=== PATIENT | female | born 1990 | race African-American/Black ===

== ENCOUNTER 2021-09-30 01:27 | Observation (INO) ==
[2021-09-30] MEDS ORDERED: ONDANSETRON 4 MG/2 ML VIAL IV PRN (01:58)
[2021-09-30] MEDS: MEPERIDINE 50 MG/1 ML VIAL IV PRN ×2 (02:36→05:34)
[2021-09-30] MEDS: LACTATED RINGERS 1,000 ML IV SCH ×2 (02:41→03:13)
[2021-09-30 02:45] LABS: Basophils % 0.6 % (0.0-0.8); Eosinophils % 0.2 % (0.00-10.9); Hematocrit 33.1 VOL% (35.7-47.0); Hemoglobin 9.8 GM/DL (12.0-16.0); Immature Granulocytes % 5.5 %; Immature Granulocytes Absolute 0.29 #; Lymphocytes # 1.5 10*3/uL (1.4-4.0); Lymphocytes % 29.1 % (21.3-54.2); Mean Corpuscular HGB Conc 29.6 GM/DL (32-36); Mean Corpuscular Volume 87.1 FL (87-102); Mean Platelet Volume 11.7 FL (9.6-12.0); Monocytes % 1.3 % (1.7-12.7); NRBC # 0.03 10*3/uL; Neutrophils % 63.3 % (38.7-73.9); Platelet Count 120 T/CUMM (130-400); White Blood Count 5.3 T/CUMM (4-12)
[2021-09-30 03:05] LABS: Alanine Aminotransferase 15 U/L (13-56); Albumin 2.6 G/DL (3.4-5.0); Alkaline Phosphatase 86 U/L (45-117); Aspartate Amino Transferase 29 U/L (0-37); Bilirubin,Total < 0.39 MG/DL (0.20-1.00); Blood Urea Nitrogen 7 MG/DL (7-18); Calcium 8.9 MG/DL (8.5-10.1); Carbon Dioxide 23 MMOL/L (21-32); Estimated Glom Filtration Rate 211 ML/MIN; Glucose 112 MG/DL (74-106); Osmolality,Calculated 271.8 MOS/KG (273-304); Potassium 3.9 MMOL/L (3.5-5.1); Sodium 137 MMOL/L (136-145); Total Protein 6.4 G/DL (6.4-8.2)
[2021-09-30 03:10] LABS: Anisocytosis 1+; Band Neutrophils 32 % (0-10); Lymphocytes 29 % (20-55); Metamyelocytes 2 %; Nucleated Red Blood Cells 1 (0-5); Platelet Estimate Adequate; Segmented Neutrophils 35 % (50-85); Total Cells Counted 100
[2021-09-30 03:11] LABS: Ovalocytes Few
[2021-09-30 03:28] LABS: Rubella Antibody IgG Result Reactive (NonReactive)
[2021-09-30] MEDS ORDERED: OXYTOCIN/LR 20 UNIT/1,000 ML BAG IV ONE ×2 (03:30→03:31)
[2021-09-30] MEDS: ACETAMINOPHEN 500 MG TABLET PO PRN ×2 (05:20→19:39)
[2021-09-30 07:04] LABS: Hepatitis B Surface Ag Quant < 0.10 Index; Hepatitis B Surface Ag Result Non-Reactive (NonReactive)
[2021-09-30 07:26] LABS: HIV Antigen/Antibody Result Nonreactive (Nonreactive)
[2021-09-30 10:00] LABS: Barbiturates Screen,Urine Negative (Negative); Benzodiazepines Screen,Urine Negative (Negative); Cannabinoid Screen,Urine Negative (Negative); Opiate Screen,Urine Negative (Negative); Phencyclidine Screen,Urine Negative (Negative)
[2021-09-30] MEDS ORDERED: IBUPROFEN 800 MG TABLET PO PRN (10:00)
[2021-09-30] MEDS ORDERED: DOCUSATE SODIUM 100 MG CAPSULE PO PRN (10:05)
[2021-09-30 12:43] LABS: Hematocrit 27.5 VOL% (35.7-47.0); Hemoglobin 8.6 GM/DL (12.0-16.0)
[2021-09-30] MEDS: DOCUSATE SODIUM 100 MG CAPSULE PO PRN (19:40)
[2021-09-30] MEDS: FERROUS SULFATE 325 MG TABLET PO SCH ×2 (19:40→21:14)
[2021-10-01 05:51] LABS: Basophils % 0.2 % (0.0-0.8); Eosinophils # 0.1 10*3/uL (0.0-0.87); Eosinophils % 0.3 % (0.00-10.9); Hematocrit 24.7 VOL% (35.7-47.0); Hemoglobin 7.7 GM/DL (12.0-16.0); Immature Granulocytes % 1.7 %; Immature Granulocytes Absolute 0.31 #; Lymphocytes # 1.1 10*3/uL (1.4-4.0); Lymphocytes % 5.7 % (21.3-54.2); Mean Corpuscular HGB Conc 31.2 GM/DL (32-36); Mean Corpuscular Volume 83.7 FL (87-102); Mean Platelet Volume 12.5 FL (9.6-12.0); Monocytes % 5.9 % (1.7-12.7); Neutrophils % 86.2 % (38.7-73.9); Platelet Count 160 T/CUMM (130-400); Red Blood Count 2.95 MC/CUMM (3.8-5.5); Red Cell Distribution Width 18.2 % (9.3-17.3); White Blood Count 18.3 T/CUMM (4-12)
[2021-10-01 06:18] LABS: Band Neutrophils 3 % (0-10); Eosinophils 1 % (0-10); Hypochromia 1+; Lymphocytes 11 % (20-55); Microcytosis 1+; Platelet Estimate Adequate; Segmented Neutrophils 84 % (50-85); Total Cells Counted 100
[2021-10-01] MEDS: FERROUS SULFATE 325 MG TABLET PO SCH ×2 (08:40→19:25)
[2021-10-01] MEDS ORDERED: SODIUM CHLORIDE 0.9% 1,000 ML IV PRN (09:31)
[2021-10-01] MEDS: ACETAMINOPHEN 500 MG TABLET PO PRN ×2 (13:22→19:25)
[2021-10-01] MEDS ORDERED: SIMETHICONE CHEW 80 MG TABLET PO PRN (14:13)
[2021-10-01] MEDS: DOCUSATE SODIUM 100 MG CAPSULE PO PRN (19:25)
[2021-10-01] MEDS ORDERED: ACETAMINOPHEN/CODEINE 300-30 MG TABLET PO PRN ×2 (19:48)
[2021-10-01] MEDS ORDERED: MAGNESIUM HYDROXIDE SUSP 30 ML UDCUP PO PRN (20:30)
[2021-10-01 21:07] LABS: Hematocrit 28.7 VOL% (35.7-47.0); Hemoglobin 9.1 GM/DL (12.0-16.0)
[2021-10-02 07:20] VITALS: BP 109/64
[2021-10-02] MEDS: FERROUS SULFATE 325 MG TABLET PO SCH ×2 (07:58→09:42)
[2021-10-02] MEDS: DOCUSATE SODIUM 100 MG CAPSULE PO PRN (09:42)
== END 2021-10-02 11:40 | disposition home or self-care (01) ==
LOC: N.LDOUT 01:27 → N.LD 01:27 → N.OB 09:15
PROVIDERS: ADMIT Obstetrics & Gynecology; ATTEND Obstetrics & Gynecology

== ENCOUNTER 2022-02-27 10:15 | Observation (INO) ==
[2022-02-25 12:45] LABS: Basophils % 0.2 % (0.0-0.8); Eosinophils % 0.2 % (0.00-10.9); Hematocrit 33.6 VOL% (35.7-47.0); Hemoglobin 10.4 GM/DL (12.0-16.0); Immature Granulocytes % 0.3 %; Immature Granulocytes Absolute 0.02 #; Lymphocytes % 15.7 % (21.3-54.2); Mean Corpuscular Volume 81.6 FL (87-102); Mean Platelet Volume 12.3 FL (9.6-12.0); Monocytes # 0.4 10*3/uL (0.11-0.8); Neutrophils % 77.6 % (38.7-73.9); Platelet Count 235 T/CUMM (130-400); Red Blood Count 4.12 MC/CUMM (3.8-5.5); Red Cell Distribution Width 17.8 % (9.3-17.3); White Blood Count 6.1 T/CUMM (4-12)
[2022-02-25 12:58] LABS: Alanine Aminotransferase 13 U/L (13-56); Albumin 3.1 G/DL (3.4-5.0); Alkaline Phosphatase 66 U/L (45-117); Aspartate Amino Transferase 8 U/L (0-37); Bilirubin,Total < 0.39 MG/DL (0.20-1.00); Blood Urea Nitrogen 6 MG/DL (7-18); Carbon Dioxide 22 MMOL/L (21-32); Chloride 109 MMOL/L (98-107); Glucose 103 MG/DL (74-106); Osmolality,Calculated 276.4 MOS/KG (273-304); Sodium 140 MMOL/L (136-145); Total Protein 6.6 G/DL (6.4-8.2)
[2022-02-25 13:55] LABS: HIV Antigen/Antibody Result Nonreactive (Nonreactive)
[2022-02-27] MEDS ORDERED: LACTATED RINGERS 1,000 ML IV SCH ×2 (11:30→14:30)
[2022-02-27] MEDS ORDERED: BUPIVACAINE SPINAL 0.75% 2 ML AMP SPINAL ONE (13:33)
[2022-02-27] MEDS ORDERED: BISACODYL 10 MG SUPP RECTAL PRN (14:29)
[2022-02-27] MEDS ORDERED: MAGNESIUM HYDROXIDE SUSP 30 ML UDCUP PO PRN (14:29)
[2022-02-27] MEDS ORDERED: ONDANSETRON 4 MG/2 ML VIAL IV PRN (14:29)
[2022-02-27] MEDS ORDERED: ACETAMINOPHEN 325 MG TABLET PO PRN (14:29)
[2022-02-27] MEDS: ACETAMINOPHEN/CODEINE 300-30 MG TABLET PO PRN (15:41)
[2022-02-27] MEDS: DOCUSATE SODIUM 100 MG CAPSULE PO SCH (21:08)
[2022-02-28] MEDS: ACETAMINOPHEN/CODEINE 300-30 MG TABLET PO PRN (03:30)
[2022-02-28] MEDS: DOCUSATE SODIUM 100 MG CAPSULE PO SCH (08:28)
[2022-02-28 09:25] VITALS: BP 122/64
== END 2022-02-28 12:05 | disposition home or self-care (01) ==
LOC: N.OB 10:15 → N.OR 10:15 → N.SDSINP 10:17 → N.OR 14:29 → N.SDSINP 14:29
PROVIDERS: ADMIT Obstetrics & Gynecology; ATTEND Obstetrics & Gynecology

== ENCOUNTER 2022-08-21 05:14 | Inpatient (IN) ==
[2022-08-21] MEDS ORDERED: OXYTOCIN/LR 20 UNIT/1,000 ML BAG IV ONE ×3 (05:26→20:25)
[2022-08-21] MEDS ORDERED: METHYLERGONOVINE 0.2 MG/1 ML AMP IM PRN (05:26)
[2022-08-21] MEDS ORDERED: miSOPROStoL 200 MCG TABLET RECTAL PRN (05:26)
[2022-08-21] MEDS ORDERED: ONDANSETRON 4 MG/2 ML VIAL IV PRN (05:26)
[2022-08-21] MEDS ORDERED: CARBOPROST TROMETHAMINE 250 MCG/ML AMP IM PRN (05:26)
[2022-08-21] MEDS ORDERED: TRANEXAMIC ACID 1,000 MG in SODIUM CHLORIDE 0.9% 100 ML IV PRN (05:26)
[2022-08-21] MEDS ORDERED: LACTATED RINGERS 1,000 ML IV ONE (05:45)
[2022-08-21 06:21] LABS: Basophils % 0.3 % (0.0-0.8); Eosinophils # 0.1 10*3/uL (0.0-0.87); Eosinophils % 0.8 % (0.00-10.9); Hematocrit 34.1 VOL% (35.7-47.0); Hemoglobin 10.8 GM/DL (12.0-16.0); Immature Granulocytes % 0.5 %; Immature Granulocytes Absolute 0.04 #; Lymphocytes # 1.6 10*3/uL (1.4-4.0); Lymphocytes % 21.3 % (21.3-54.2); Mean Corpuscular HGB Conc 31.7 GM/DL (32-36); Mean Corpuscular Volume 87.9 FL (87-102); Mean Platelet Volume 12.3 FL (9.6-12.0); Monocytes # 0.5 10*3/uL (0.11-0.8); Monocytes % 6.7 % (1.7-12.7); Neutrophils % 70.4 % (38.7-73.9); Platelet Count 183 T/CUMM (130-400); Red Blood Count 3.88 MC/CUMM (3.8-5.5); Red Cell Distribution Width 15.8 % (9.3-17.3); White Blood Count 7.6 T/CUMM (4-12)
[2022-08-21] MEDS ORDERED: PROMETHAZINE 25 MG/1 ML VIAL IM ONE (06:29)
[2022-08-21] MEDS ORDERED: diphenhydrAMINE 50 MG/1 ML VIAL IV PRN ×2 (06:29)
[2022-08-21] MEDS ORDERED: ePHEDrine 50 MG/ML VIAL IV PRN (06:29)
[2022-08-21] MEDS ORDERED: NALOXONE 0.4 MG/ML VIAL IV PRN (06:29)
[2022-08-21] MEDS ORDERED: CITRIC ACID/SODIUM CITRATE 30 ML UDCUP PO ONE (06:34)
[2022-08-21] MEDS ORDERED: FAMOTIDINE 20 MG/2 ML VIAL IV ONE (06:34)
[2022-08-21 06:36] LABS: Albumin 2.9 G/DL (3.4-5.0); Bilirubin,Total 0.4 MG/DL (0.20-1.00); Calcium 9.5 MG/DL (8.5-10.1); Osmolality,Calculated 271.8 MOS/KG (273-304); Potassium 3.7 MMOL/L (3.5-5.1); Total Protein 6.9 G/DL (6.4-8.2)
[2022-08-21] MEDS: LACTATED RINGERS 1,000 ML IV SCH ×2 (06:44→13:10)
[2022-08-21] MEDS: fentaNYL 2 MCG/ROPIV 0.2% EPID 100 ML EPIDURAL SCH ×2 (07:50→14:44)
[2022-08-21 09:05] LABS: Bilirubin,Urine Negative (Negative); Blood, Urine Trace mg/dL (Negative); Glucose,Urine (UA) Negative (Negative); Ketones,Urine Negative (Negative); Mucus,Urine Occasional /LPF (Occasional); Nitrite,Urine Negative (Negative); Protein,Urine Negative (Negative); RBC,Urine 1 /HPF (0-4); Squamous Epithelial Cell,Urine Occasional /HPF (0-10); Urine Appearance Clear (Clear); Urine Color Yellow (Yellow)
[2022-08-21] MEDS ORDERED: fentaNYL 100 MCG/2 ML VIAL ONE (12:21)
[2022-08-21 15:44] LABS: Cord Arterial Blood HCO3 19.8 MMOL/L
[2022-08-21] MEDS ORDERED: METHYLERGONOVINE 0.2 MG/1 ML AMP ONE (15:44)
[2022-08-21 15:55] LABS: Cord Venous Blood HCO3 21.6 MMOL/L; Cord Venous Blood PCO2 51.9 MMHG
[2022-08-21] MEDS ORDERED: WITCH HAZEL PADS 100/JAR TOP PRN (20:25)
[2022-08-21] MEDS ORDERED: ACETAMINOPHEN 325 MG TABLET PO PRN (20:25)
[2022-08-21] MEDS ORDERED: LANOLIN 50% CREAM 0.3 OZ TUBE TOP PRN (20:25)
[2022-08-21] MEDS ORDERED: BISACODYL 10 MG SUPP RECTAL PRN (20:25)
[2022-08-21] MEDS ORDERED: BENZOCAINE 20%/MENTHOL 0.5% SPRAY 56 GM CAN TOP PRN (20:25)
[2022-08-21] MEDS ORDERED: oxyCODONE/ACETAMINOPHEN 5-325 MG TABLET PO PRN (20:25)
[2022-08-21] MEDS ORDERED: MEASLES/MUMPS/RUBELLA VACCINE 0.5 ML VIAL SUBCUT ONE (20:25)
[2022-08-21] MEDS ORDERED: RHO(D) IMMUNE GLOBULIN 300 MCG SYRINGE IM ONE (20:25)
[2022-08-21] MEDS ORDERED: DIPH/TET/ACEL PERT BOOSTER VACCINE 0.5 ML VIAL IM ONE (20:25)
[2022-08-21] MEDS ORDERED: HYDROCORTISONE 2.5% RECTAL CREAM 30 GM TUBE TOP PRN (20:25)
[2022-08-21] MEDS: DOCUSATE SODIUM 100 MG CAPSULE PO SCH (21:05)
[2022-08-21] MEDS: IBUPROFEN 800 MG TABLET PO PRN (21:30)
[2022-08-22] MEDS: oxyCODONE/ACETAMINOPHEN 5-325 MG TABLET PO PRN ×3 (05:42→22:59)
[2022-08-22 05:46] LABS: Basophils % 0.2 % (0.0-0.8); Eosinophils % 0.5 % (0.00-10.9); Hematocrit 30.4 VOL% (35.7-47.0); Hemoglobin 9.5 GM/DL (12.0-16.0); Immature Granulocytes % 0.6 %; Immature Granulocytes Absolute 0.05 #; Lymphocytes # 1.6 10*3/uL (1.4-4.0); Lymphocytes % 18.4 % (21.3-54.2); Mean Corpuscular HGB Conc 31.3 GM/DL (32-36); Mean Corpuscular Volume 88.9 FL (87-102); Mean Platelet Volume 12.2 FL (9.6-12.0); Monocytes # 0.6 10*3/uL (0.11-0.8); Monocytes % 6.9 % (1.7-12.7); Neutrophils % 73.4 % (38.7-73.9); Platelet Count 160 T/CUMM (130-400); Red Blood Count 3.42 MC/CUMM (3.8-5.5); Red Cell Distribution Width 15.6 % (9.3-17.3); White Blood Count 8.5 T/CUMM (4-12)
[2022-08-22] MEDS: IBUPROFEN 800 MG TABLET PO PRN (05:54)
[2022-08-22 07:27] LABS: Hypochromia Slight; Lymphocytes 12 % (20-55); Microcytosis Slight; Platelet Estimate Adequate; Total Cells Counted 100
[2022-08-22] MEDS: DOCUSATE SODIUM 100 MG CAPSULE PO SCH ×2 (08:48→22:58)
[2022-08-23] MEDS: IBUPROFEN 800 MG TABLET PO PRN ×2 (06:27→16:29)
[2022-08-23] MEDS: DOCUSATE SODIUM 100 MG CAPSULE PO SCH (09:24)
[2022-08-23] MEDS: oxyCODONE/ACETAMINOPHEN 5-325 MG TABLET PO PRN ×2 (09:30→16:29)
[2022-08-23 15:07] VITALS: BP 129/71
== END 2022-08-23 17:30 | disposition home or self-care (01) | DRG 542 ==
LOC: N.LD 05:14 → N.OB 20:20
PROVIDERS: ADMIT Obstetrics & Gynecology; ATTEND Obstetrics & Gynecology